=== PATIENT | male | born 1970 | race African-American/Black ===

== ENCOUNTER 2024-08-17 18:22 | Emergency (ER) | payer OTHER | END 2024-08-17 19:59 | disposition home or self-care (01) | LOC: ERS 18:22 | DX: K08.89 Other specified disorders of teeth and supporting structures (principal) | CPT/HCPCS: 99282 ==

== ENCOUNTER 2025-11-06 09:24 | Emergency (ER) | payer OTHER | END 2025-11-06 14:00 | disposition home or self-care (01) | LOC: ERS 09:24 | DX: J20.9 Acute bronchitis, unspecified (principal); E11.9 Type 2 diabetes mellitus without complications; Z79.84 Long term (current) use of oral hypoglycemic drugs | CPT/HCPCS: 71045; 87428; 93005 ==